=== PATIENT | male | born 1975 | race Caucasian/White ===

== ENCOUNTER 2024-04-07 21:54 | Emergency (ER) | payer SELFPAY ==
[2024-04-07 22:01] VITALS: BP 161/108; PULSE 63; RESP 14; TEMP 36.7; O2SAT 99; BMI 35.7
--- NOTE | 2024-04-07 22:02 | ED_ITS ---
HPI - Back Pain/Injury General: Chief Complaint: Back Pain/Injury Stated Complaint: Back pain Time Seen by Provider: 04/07/24 21:56 Source: patient Mode of arrival: wheelchair Limitations: no limitations History of Present Illness: Patient is a 48-year-old male presents to ED today with complaint of lower back pain over the past 2 days. No direct injury or trauma has been doing some heavy lifting around the house. He states he has a longstanding history of back pain and often times will experience flares . He states he has a history of degenerative disc disease as well as ruptured disks in his back. He states his pain today is similar to previous flares. He feels like pain radiates down into both lower extremities. He has not noticed any color or temperature changes or numbness, tingling, or loss of sensation. He is not having any saddle anesthesia or urinary retention or fecal incontinence. Patient denies fevers. No IV drug use history. MD elicited complaint: back pain Pertinent past history: prior back pain Onset (ago): day(s) Timing: constant Severity: similar to previous episodes Pain scale (0-10): 9 Similar Symptoms Previously: Yes Location: lumbar spine Radiation: buttocks, left upper leg and right upper leg Exacerbating factors: movement, walking and lifting Relieving factors: none Associated symptoms: Reports difficulty walking (secondary to low back pain); Deny abdominal pain, chills, fatigue or fever(s) Work related injury: No Review of Systems Const: Denies: fever(s), chills, body aches, fatigue or malaise Card: Denies: chest pain GI: Denies: abdominal pain : Denies: difficulty urinating, difficulty starting urination or urinary incontinence Musc: Reports: back pain; Denies: neck pain, extremity pain, extremity swelling, joint pain or joint swelling Skin/Breast: Denies: rash Neuro: Reports: difficulty walking (secondary to low back pain); Denies: numbness in extremities, weakness in extremities or sensory changes Physical Exam Const: COMMON NORMALS: no acute distress, patient oriented x3, no limitations, alert and well nourished Resp: COMMON NORMALS: normal respiratory effort and clear to auscultation bilaterally AUSCULTATION: clear to auscultation bilaterally Cardio: COMMON NORMALS: regular rate and regular rhythm RATE: regular rate RHYTHM: regular rhythm GI: COMMON NORMALS: Normal to inspection, nondistended, normoactive bowel sounds present, Soft to palpation, non-tender and no masses PALPATION: Yes Soft to palpation : COMMON NORMALS: Yes no CVA tenderness BLADDER/KIDNEY EXAM: Yes no CVA tenderness Back/Pelvis: COMMON NORMALS: no CVA tenderness THORACIC SPINE/UPPER BACK: No thoracic spinal tenderness LUMBAR SPINE/LOWER BACK: Yes ROM limited, Yes pain with ROM, Yes lumbar spinal tenderness, Yes straight leg raise positive right and Yes straight leg raise positive left PELVIS: Yes buttocks normal and No sciatic notch tenderness SACROILIAC JOINTS: Yes SI joints normal SACRUM: no tenderness COCCYX: no tenderness Extremity: COMMON NORMALS: capillary refill normal, no joint enlargement, no clubbing, cyanosis or edema, no calf tenderness and no pedal edema GENERAL: Yes normal exam except as noted Neuro: COMMON NORMALS: patient oriented x3, moves all extremities, no focal motor deficits and no sensory deficits noted SENSORIUM/ORIENTATION: Yes alert GAIT: Yes Unable to assess gait MOTOR EXAM: 5/5 motor strength present throughout Skin: COMMON NORMALS: no rashes or lesions noted GENERAL SKIN EXAM: no rashes or lesions noted Course Vital Signs: Vital signs: Vital Signs Temperature 98.0 F 04/07/24 22:01 Pulse Rate 63 04/07/24 22:01 Respiratory Rate 18 04/07/24 22:32 Blood Pressure 161/108 04/07/24 22:01 Pulse Oximetry 97 04/07/24 22:32 Oxygen Delivery Me thod Room Air 04/07/24 22:01 MDM - Back Pain/Injury Medical Decision Making No red flags on patient history and physical exam. Patient feeling better after medications given here. Will place him on steroids, anti-inflammatories, muscle relaxers. Will have case management set him up with a primary care provider for further follow-up. Return ED precautions given. Differential Diagnosis Likely lumbar radiculopathy, sciatica and strain of lumbar region Medical Records I reviewed the patient's medical records. XR interpretation done by ED provider, pending radiology final review (personal interpretation no acute process noted) Discharge Plan Discharge Patient Disposition: Home Clinical Impression: Low back pain Qualifiers: Chronicity: acute Back pain laterality: midline Sciatica presence: without sciatica Qualified Code(s): M54.50 - Low back pain, unspecified Condition: Stable Prescriptions: New methocarbamol 500 mg tablet 1,000 mg PO Q8H Qty: 30 0RF diclofenac sodium 50 mg tablet,delayed release (DR/EC) 50 mg PO Q12H PRN (Reason: pain) Qty: 20 0RF Medrol (Azael) 4 mg tablets,dose pack See Rx Instructions .ROUTE .COMPLEX Qty: 21 0RF Rx Instructions: orally per package directions Discharge Orders: Discharge ED (Routine); Ordered 04/07/24 Ordered By: Rona Pineda Coding Level of Care Code ED Journeyman Pipefitter for Gianni Nguyen
--- NOTE | 2024-04-07 22:17 | XRR_ITS ---
PROCEDURE INFORMATION: Exam: XR Lumbosacral Spine Exam date and time: 04/07/2024 10:26 PM Age: 48 years old Clinical indication: Patient HX: C/O low back pain. No injury. TECHNIQUE: Imaging protocol: Radiologic exam of the lumbosacral spine. Views: 2 or 3 views. COMPARISON: No relevant prior studies available. FINDINGS: Bones/joints: 4 lumbar vertebrae which is a normal variant. Mild to moderate multilevel spine degenerative changes including degenerative disc disease, spondylosis and facet degenerative changes. Soft tissues: Unremarkable. Organs: Surgical clips in the gallbladder fossa consistent with cholecystectomy. XR/XR lumbar spine 2-3V* [id number] IMPRESSION: 1. 4 lumbar vertebrae which is a normal variant. 2. Mild to moderate multilevel spine degenerative changes including degenerative disc disease, spondylosis and facet degenerative changes.
[2024-04-07 22:32] VITALS: RESP 18; O2SAT 97
[2024-04-07] MEDS: morphine 4 mg/mL SDV 1 mL IVP (22:32)
[2024-04-07] MEDS: dexamethasone 10 mg/mL INJ IVP (22:32)
[2024-04-07] MEDS: orphenadrine 30 mg/mL Inj 2 mL 60 MG IVP (22:32)
[2024-04-07] MEDS: ketorolac 30 mg/mL INJ IVP (22:33)
--- NOTE | 2024-04-12 07:46 | DCPLANNER ---
messaged wpfm for er f/u, and pcp est
== END 2024-04-07 23:48 | disposition home or self-care (01) ==
PROVIDERS: Emergency Provider Physician Assistant
DX: M54.50 Low back pain, unspecified (principal)
CPT/HCPCS: 72100; 96374; 96375; 99284; J1100; J1885; J2270; J2360

== ENCOUNTER 2024-06-21 22:57 | Emergency (ER) | payer OTHER, SELFPAY ==
[2024-06-21 23:04] VITALS: BP 145/84; PULSE 75; RESP 18; TEMP 36.6; O2SAT 95; BMI 33.4
[2024-06-21 23:09] VITALS: BP 145/84; PULSE 68; O2SAT 96
--- NOTE | 2024-06-21 23:16 | ED_ITS ---
HPI - Skin/Abscess/Foreign Bdy General: Chief complaint: Skin/Abscess/Foreign Body Stated complaint: Itching\Allergic Reaction Time Seen by Provider: 06/21/24 23:08 History of Present Illness: Presents to the ER with her all over his chest his back is growing in his buttocks. He says been going on for about 5 days is getting weak to the point that he cannot stand it it itches so bad and he is constantly scratching it. Patient has taken multiple doses of Benadryl and does not seem to help at all. There is nothing in the patient's life that is changed or that he can relate the rash to. Related Data Previous Rx's Medication Instructions Recorded diclofenac sodium 50 mg 50 mg PO Q12H PRN pain #20 tabs 04/07/24 tablet,delayed release methocarbamol 500 mg tablet 1,000 mg (2 x 500 mg) PO Q8H #30 04/07/24 tabs methylprednisolone 4 mg tablets in See Rx Instructions PO .COMPLEX 04/07/24 a dose pack (Medrol (Azael)) #21 ea hydroxyzine HCl 50 mg tablet 100 mg (2 x 50 mg) PO Q6H PRN 06/21/24 itching #20 tabs Allergies Allergy/AdvReac Type Severity Reaction Status Date / Time citric acid Allergy ALGY-Bliste Verified 06/21/24 23:09 r tomato Allergy ALGY-Anaphy Verified 06/21/24 23:09 laxis Review of Systems General: Reports: 10 or more systems reviewed and unremarkable except in HPI and below Physical Exam Const: COMMON NORMALS: no acute distress, average body habitus, patient oriented x3, no limitations, healthy appearing, alert and well nourished HENMT: COMMON NORMALS: normocephalic, atraumatic, hearing grossly normal bilaterally, external ears normal, Normal external nose present and moist oral mucous membranes HEAD & SCALP: normocephalic and atraumatic NOSE: Normal external nose present EXTERNAL EAR: Yes external ears normal Neck/C-Spine: COMMON NORMALS: no JVD Chest: COMMONS NORMALS: normal inspection of the chest and normal palpation of entire chest wall Resp: COMMON NORMALS: normal respiratory effort, No retractions, No use of accessory muscles and clear to auscultation bilaterally AUSCULTATION: clear to auscultation bilaterally Cardio: COMMON NORMALS: no JVD, regular rate, regular rhythm, S1 normal heart sound present, S2 normal heart sound present, No gallops present (Cardio), No clicks present (Cardio), No murmurs present (Cardio) and No rub (Cardio) RATE: regular rate RHYTHM: regular rhythm HEART SOUNDS: S1 normal heart sound present and S2 normal heart sound present GI: COMMON NORMALS: Normal to inspection, nondistended, normoactive bowel sounds present, Soft to palpation, non-tender, No hepatosplenomegaly present and no masses PALPATION: Yes Soft to palpation and Yes No hepatosplenomegaly present Neuro: COMMON NORMALS: patient oriented x3 SENSORIUM/ORIENTATION: Yes alert Skin: NARRATIVE SKIN EXAM: Rash noted on patient's right shoulder and chest. Nonspecific in nature Course Vital Signs: Vital signs: Vital Signs Temperature 97.8 F 06/21/24 23:04 Pulse Rate 68 06/21/24 23:09 Respiratory Rate 18 06/21/24 23:04 Blood Pressure 145/84 06/21/24 23:09 Pulse Oximetry 96 06/21/24 23:09 Oxygen Delivery Me thod Room Air 06/21/24 23:09 MDM - Skin/Abscess/Foreign Bdy Medicial Decision Making Patient was given hydroxyzine 100 mg, 10 mg Decadron, and 80 mg Depo-Medrol here in the ER and will be sent home with hydroxyzine. Medical Records I reviewed the patient's medical records. Lab Data I reviewed the patient's lab results. No radiology studies performed this visit Discharge Plan Discharge Patient Disposition: Home Clinical Impression: Rash Condition: Stable Prescriptions: New hydroxyzine HCl 50 mg tablet 100 mg PO Q6H PRN (Reason: itching) Qty: 20 0RF No Action methocarbamol 500 mg tablet 1,000 mg PO Q8H Qty: 30 0RF diclofenac sodium 50 mg tablet,delayed release (DR/EC) 50 mg PO Q12H PRN (Reason: pain) Qty: 20 0RF Medrol (Azael) 4 mg tablets,dose pack See Rx Instructions .ROUTE .COMPLEX Qty: 21 0RF Rx Instructions: orally per package directions Discharge Orders: Discharge ED (Routine); Ordered 06/21/24 Ordered By: Herbie Francisco Patient Instructions: Acute Rash (ED) Activity Restrictions/Additional Instructions: You have been giving a strong antihistamine as well as a short acting and long- acting steroid in the ER. You will be discharged on a strong antihistamine called hydroxyzine. Please take it as directed as needed for itching, it may cause sedation, please follow-up with your family practice physician within the next 7 days for further evaluation and treatment as needed. Coding Level of Care Code ED Sleep Lab Technician for Gianni Nguyen
[2024-06-21] MEDS: hyDROXYzine 25 mg Capsule 100 MG PO (23:22)
[2024-06-21] MEDS: methylPREDNISolone (DEPO) 80 MG/ML INJ 1 mL IM (23:23)
[2024-06-21] MEDS: dexamethasone 10 mg/mL INJ IM (23:24)
[2024-06-21 23:40] VITALS: BP 129/78; PULSE 67; O2SAT 97
== END 2024-06-21 23:42 | disposition home or self-care (01) ==
PROVIDERS: Emergency Provider Emergency Medicine
DX: R21 Rash and other nonspecific skin eruption (principal)
CPT/HCPCS: 96372; 99284; J1010; J1100

== ENCOUNTER 2024-06-26 22:04 | Emergency (ER) | payer OTHER, SELFPAY ==
[2024-06-26 22:13] VITALS: BP 150/76; PULSE 74; RESP 18; TEMP 36.6; O2SAT 96; BMI 34.7
--- NOTE | 2024-06-27 00:06 | W.ED.SKABFB ---
HPI - Skin/Abscess/Foreign Bdy General: Chief complaint: Skin/Abscess/Foreign Body Stated complaint: Rash Time Seen by Provider: 06/26/24 23:38 Source: patient Mode of arrival: ambulatory Limitations: no limitations History of Present Illness: Patient is a 49-year-old male presenting to the emergency department for the second time in 2 days for rash that has been evolving over the past week. He was seen here few days ago and the rash was reported to be to his back, however he states no other rashes in his genitalia. Denies any new sheets or other potential allergens. Denies any medications. States that last time he received steroids here in the emergency department and this improves his rash, however these were off and he started to have the rash worsened. He notes that the rash is incredibly pruritic, and he cannot quit from itching and this is caused him issues with sleeping. Denies any fever, chest pain, shortness of breath, or other symptoms. MD complaint: rash Onset (ago): week(s) Location: back and genitals Severity: moderate Quality: constant and pruritic Pain Consistency: constant Relieving factors: none Context: none Associated symptoms: Deny chills, fever(s), nausea or vomiting Related Data Previous Rx's Medication Instructions Recorded diclofenac sodium 50 mg 50 mg PO Q12H PRN pain #20 tabs 04/07/24 tablet,delayed release methocarbamol 500 mg tablet 1,000 mg (2 x 500 mg) PO Q8H #30 04/07/24 tabs methylprednisolone 4 mg tablets in See Rx Instructions PO .COMPLEX 04/07/24 a dose pack (Medrol (Azael)) #21 ea hydroxyzine HCl 50 mg tablet 100 mg (2 x 50 mg) PO Q6H PRN 06/21/24 itching #20 tabs permethrin 5 % topical cream 1 applic topical Q14D 2 doses #60 06/27/24 grams triamcinolone acetonide 0.5 % 1 applic topical BID #15 grams 06/27/24 topical ointment Allergies Allergy/AdvReac Type Severity Reaction Status Date / Time citric acid Allergy ALGY-Bliste Verified 06/21/24 23:09 r tomato Allergy ALGY-Anaphy Verified 06/21/24 23:09 laxis Review of Systems General: Reports: 10 or more systems reviewed and unremarkable except in HPI and below Const: Reports: change in sleep pattern; Denies: fever(s) or chills Card: Denies: chest pain Resp: Denies: dyspnea GI: Denies: abdominal pain, nausea, vomiting or diarrhea Musc: Denies: extremity pain or joint pain Skin/Breast: Reports: rash and pruritus; Denies: skin pain, skin tenderness or new lesions Neuro: Denies: headache(s) Physical Exam Const: COMMON NORMALS: no acute distress, average body habitus, patient oriented x3, no limitations, healthy appearing, alert and well nourished HENMT: COMMON NORMALS: normocephalic and atraumatic HEAD & SCALP: normocephalic and atraumatic Neck/C-Spine: COMMON NORMALS: full ROM, no lymphadenopathy, supple and no meningeal signs Resp: COMMON NORMALS: normal respiratory effort, No use of accessory muscles and clear to auscultation bilaterally AUSCULTATION: clear to auscultation bilaterally Cardio: COMMON NORMALS: regular rate and regular rhythm RATE: regular rate RHYTHM: regular rhythm Extremity: COMMON NORMALS: full ROM and capillary refill normal Neuro: COMMON NORMALS: patient oriented x3 SENSORIUM/ORIENTATION: Yes alert MENINGEAL SIGNS: Yes no meningeal signs Skin: COMMON NORMALS: no wounds and turgor normal NARRATIVE SKIN EXAM: Intertriginous appearing rash patient's genitalia, which extends down the inner aspect of both thighs. Not overtly erythematous, however there is evidence that this is pruritic and there is lichenification diffusely within the genitalia. There is some skin cracking noted to patient's intergluteal cleft, again with evidence of itching. No satellite lesions. No purulent drainage. No burrowing of patient's digits. GENERAL SKIN EXAM: turgor normal Course Vital Signs: Vital signs: Vital Signs Temperature 97.9 F 06/26/24 22:13 Pulse Rate 74 06/26/24 22:13 Respiratory Rate 18 06/26/24 22:13 Blood Pressure 150/76 06/26/24 22:13 Pulse Oximetry 96 06/26/24 22:13 Oxygen Delivery Me thod Room Air 06/26/24 22:13 MDM - Skin/Abscess/Foreign Bdy Medicial Decision Making Patient presented for the second time in 2 days for rash. Last time it was reported to be primarily on his back, however states now it is in his groin. He notes that he did have improvement from Decadron and Depo-Medrol last time, however once the Depo-Medrol wore off it got worse. He denied any exposure to potential allergens. On examination the rash was primarily to the genitalia, no obvious rash to his back, torso, or extremities. Differential of this rash includes but not limited to a contact dermatitis, psoriasis, or scabies. We will try permethrin for potential scabies, also will provide a topical triamcinolone. He again was giving steroid shots here in the emergency department as well as a hydroxyzine, and is encouraged to continue taking this at home. Will also refer to dermatology if he continues to have worsening of the rash. Discussed this case with Dr. Francisco who is familiar with the patient. No radiology studies performed this visit Discharge Plan Discharge Patient Disposition: Home Clinical Impression: Rash Condition: Stable Prescriptions: New permethrin 5 % cream 1 applic topical Q14D Qty: 60 0RF Rx Instructions: apply second treatment 14 days after first treatment if live lice remain triamcinolone acetonide 0.5 % ointment 1 applic topical BID Qty: 15 0RF No Action methocarbamol 500 mg tablet 1,000 mg PO Q8H Qty: 30 0RF diclofenac sodium 50 mg tablet,delayed release (DR/EC) 50 mg PO Q12H PRN (Reason: pain) Qty: 20 0RF Medrol (Azael) 4 mg tablets,dose pack See Rx Instructions .ROUTE .COMPLEX Qty: 21 0RF Rx Instructions: orally per package directions hydroxyzine HCl 50 mg tablet 100 mg PO Q6H PRN (Reason: itching) Qty: 20 0RF Discharge Orders: Discharge ED (Routine); Ordered 06/27/24 Ordered By: Nick Kennedy Discharge Diet: Usual diet Discharge Activity: Increase activity as tolerated Patient Instructions: Rash - Nonspecific Activity Restrictions/Additional Instructions: Permethrin as prescribed. Topical triamcinolone. Follow-up with dermatology as discussed. Continue taking hydroxyzine for itching. May also take Benadryl. Follow-up with your primary care provider with any further issues. Coding Level of Care Code ED Account Services Specialist for Gianni Nguyen
[2024-06-27] MEDS: hyDROXYzine 25 mg Capsule 50 MG PO (00:42)
[2024-06-27] MEDS: methylPREDNISolone (DEPO) 80 MG/ML INJ 1 mL IM (00:48)
[2024-06-27] MEDS: dexamethasone 10 mg/mL INJ IM (00:48)
[2024-06-27 00:51] VITALS: BP 133/86; PULSE 63; O2SAT 92
[2024-06-27 01:10] VITALS: BP 122/81; PULSE 66; O2SAT 94
--- NOTE | 2024-06-27 09:07 | DCPLANNER ---
Message sent to Dermatology for follow up on Rash
== END 2024-06-27 01:12 | disposition home or self-care (01) ==
PROVIDERS: Emergency Provider Physician Assistant
DX: R21 Rash and other nonspecific skin eruption (principal)
CPT/HCPCS: 96372; 99284; J1010; J1100

== ENCOUNTER 2024-08-12 21:01 | Emergency (ER) | payer OTHER, SELFPAY ==
[2024-08-12 21:06] VITALS: BP 143/94; PULSE 75; RESP 22; TEMP 36.6; O2SAT 97; BMI 35.7
--- NOTE | 2024-08-12 21:27 | ED_ITS ---
HPI - Back Pain/Injury General: Chief Complaint: Back Pain/Injury Stated Complaint: right side back pain Time Seen by Provider: 08/12/24 21:02 History of Present Illness: Patient is a 49-year-old male that presents to the emergency department with acute on chronic back pain. Patient denies any falls or trauma. Denies any new injury. Patient states this is his baseline chronic back pain but it is flared up. Patient denies radiculopathy Denies numbness tingling Denies weakness. Lifting his leg causes increased back pain. He denies sacral paresthesias Denies urinary retention or incontinence Denies bowel retention or incontinence. Associated symptoms: Reports difficulty walking (secondary to low back pain); Deny abdominal pain, chills, fatigue or fever(s) Related Data Previous Rx's Medication Instructions Recorded diclofenac sodium 50 mg 50 mg PO Q12H PRN pain #20 tabs 04/07/24 tablet,delayed release methocarbamol 500 mg tablet 1,000 mg (2 x 500 mg) PO Q8H #30 04/07/24 tabs methylprednisolone 4 mg tablets in See Rx Instructions PO .COMPLEX 04/07/24 a dose pack (Medrol (Azael)) #21 ea hydroxyzine HCl 50 mg tablet 100 mg (2 x 50 mg) PO Q6H PRN 06/21/24 itching #20 tabs permethrin 5 % topical cream 1 applic topical Q14D 2 doses #60 06/27/24 grams triamcinolone acetonide 0.5 % 1 applic topical BID #15 grams 06/27/24 topical ointment methocarbamol 500 mg tablet 500 mg PO Q6H #30 tabs 08/12/24 methylprednisolone 4 mg tablets in See Rx Instructions PO .COMPLEX 08/12/24 a dose pack (Medrol (Azael)) #21 ea Allergies Allergy/AdvReac Type Severity Reaction Status Date / Time citric acid Allergy ALGY-Bliste Verified 06/21/24 23:09 r tomato Allergy ALGY-Anaphy Verified 06/21/24 23:09 laxis Review of Systems Const: Denies: fever(s), chills, body aches, fatigue or malaise Card: Denies: chest pain GI: Denies: abdominal pain : Denies: difficulty urinating, difficulty starting urination or urinary incontinence Musc: Reports: back pain; Denies: neck pain, extremity pain, extremity swelling, joint pain or joint swelling Skin/Breast: Denies: rash Neuro: Reports: difficulty walking (secondary to low back pain); Denies: numbness in extremities, weakness in extremities or sensory changes Physical Exam Const: COMMON NORMALS: no acute distress, patient oriented x3, no limitations, alert and well nourished Resp: COMMON NORMALS: normal respiratory effort and clear to auscultation bilaterally AUSCULTATION: clear to auscultation bilaterally Cardio: COMMON NORMALS: regular rate and regular rhythm RATE: regular rate RHYTHM: regular rhythm GI: COMMON NORMALS: Normal to inspection, nondistended, normoactive bowel sounds present, Soft to palpation, non-tender and no masses PALPATION: Yes Soft to palpation : COMMON NORMALS: Yes no CVA tenderness BLADDER/KIDNEY EXAM: Yes no CVA tenderness Back/Pelvis: COMMON NORMALS: no CVA tenderness THORACIC SPINE/UPPER BACK: No thoracic spinal tenderness LUMBAR SPINE/LOWER BACK: Yes ROM limited, Yes pain with ROM, Yes lumbar spinal tenderness, Yes straight leg raise positive right and Yes straight leg raise positive left PELVIS: Yes buttocks normal and No sciatic notch tenderness SACROILIAC JOINTS: Yes SI joints normal SACRUM: no tenderness COCCYX: no tenderness Extremity: COMMON NORMALS: capillary refill normal, no joint enlargement, no clubbing, cyanosis or edema, no calf tenderness and no pedal edema GENERAL: Yes normal exam except as noted Neuro: COMMON NORMALS: patient oriented x3, moves all extremities, no focal motor deficits and no sensory deficits noted SENSORIUM/ORIENTATION: Yes alert GAIT: Yes Unable to assess gait MOTOR EXAM: 5/5 motor strength present throughout Skin: COMMON NORMALS: no rashes or lesions noted GENERAL SKIN EXAM: no rashes or lesions noted Course Vital Signs: Vital signs: Vital Signs Temperature 97.8 F 08/12/24 21:06 Pulse Rate 75 08/12/24 21:06 Respiratory Rate 22 H 08/12/24 21:06 Blood Pressure 143/94 08/12/24 21:06 Pulse Oximetry 97 08/12/24 21:06 Oxygen Delivery Me thod Room Air 08/12/24 21:06 MDM - Back Pain/Injury Medical Decision Making Patient was evaluated today for complaints of lumbar back pain that is chronic in nature. Patient states this is baseline back pain but it is flared today. Describing more muscle spasm on the right side of the back, off midline. Patient was treated here in the emergency department with diazepam, ketorolac, Decadron. Have casework manager assist him in establishing primary care Patient needs to follow-up with primary care. He will be sent home with a prescription for Medrol Dosepak and muscle relaxer No radiology studies performed this visit Discharge Plan Discharge Patient Disposition: Home Clinical Impression: Strain of lumbar region Condition: Stable Prescriptions: New methocarbamol 500 mg tablet 500 mg PO Q6H Qty: 30 0RF methylprednisolone [Medrol (Azael)] 4 mg tablets,dose pack See Rx Instructions .ROUTE .COMPLEX Qty: 21 0RF Rx Instructions: for 6 days No Action permethrin 5 % cream 1 applic topical Q14D Qty: 60 0RF Rx Instructions: apply second treatment 14 days after first treatment if live lice remain triamcinolone acetonide 0.5 % ointment 1 applic topical BID Qty: 15 0RF methocarbamol 500 mg tablet 1,000 mg PO Q8H Qty: 30 0RF diclofenac sodium 50 mg tablet,delayed release (DR/EC) 50 mg PO Q12H PRN (Reason: pain) Qty: 20 0RF Medrol (Azael) 4 mg tablets,dose pack See Rx Instructions .ROUTE .COMPLEX Qty: 21 0RF Rx Instructions: orally per package directions hydroxyzine HCl 50 mg tablet 100 mg PO Q6H PRN (Reason: itching) Qty: 20 0RF Discharge Orders: Discharge ED (Routine); Ordered 08/12/24 Ordered By: Fransisco Louis Discharge Diet: Advance as tolerated Discharge Activity: Resume usual activity Patient Instructions: Opioid Safety, Pain Management, Core Strengthening Exercises (ED), Low Back Strain (ED), Lower Back Exercises (ED) Activity Restrictions/Additional Instructions: Please establish primary care and return to the emergency department for new concerning or worsening symptoms Coding Level of Care Code ED Dog And Cat Food Cook for [facility] Nguyen
[2024-08-12] MEDS: ketorolac 60 mg/2 mL INJ IM (21:38)
[2024-08-12] MEDS: diazePAM 5 mg Tablet PO (21:38)
[2024-08-12] MEDS: dexamethasone 10 mg/mL INJ IM (21:38)
--- NOTE | 2024-08-15 08:24 | DCPLANNER ---
Message sent to Clinics to get a PCP established.
== END 2024-08-12 22:18 | disposition home or self-care (01) ==
PROVIDERS: Emergency Provider Nurse Practitioner
DX: S39.012A Strain of muscle, fascia and tendon of lower back, initial encounter (principal); X58.XXXA Exposure to other specified factors, initial encounter
CPT/HCPCS: 96372; 99284; J1100; J1885

== ENCOUNTER → 2024-10-19 08:42 | Outpatient (BNVA) | payer OTHER, SELFPAY | PROVIDERS: Visit Provider Family Medicine | DX: Z13.6 Encounter for screening for cardiovascular disorders (principal) | CPT/HCPCS: 80053; 80061; 85025 ==

== ENCOUNTER 2024-11-15 11:26 | Emergency (ER) | payer OTHER, SELFPAY ==
[2024-11-15 11:34] VITALS: BP 147/92; PULSE 73; RESP 17; TEMP 36.6; O2SAT 96; BMI 35.7
--- NOTE | 2024-11-15 12:40 | XR_ITS ---
WS: [id number] Left elbow, 3 views, 11/15/2024 Clinical Data: left elbow pain Comparison: None. Findings: No fractures or dislocations are seen. The radial head is normal. The soft tissues are unremarkable. XR/XR elbow LT min 3V* [id number] Impression: Negative left elbow.
--- NOTE | 2024-11-15 12:41 | ED_ITS ---
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 Rates the pain a 3 out of 10 currently is improved with rest Associated symptoms: Deny chest pain, fever(s) or rash Related Data Previous Rx's ?Medication ?Instructions ?Recorded celecoxib 200 mg capsule (Celebrex) 200 mg PO BID #120 caps 10/19/24 gabapentin 300 mg capsule 300 mg PO .qhs #60 caps 09/22 tizanidine 4 mg tablet 4 mg PO BID PRN muscle spast icity 10/19/24 #60 tabs Allergies Allergy/AdvReac Type Severity Reaction Status Date / Time citric acid Allergy ALGY-Bliste Verified 11/15/24 11:38 r tomato Allergy ALGY-Anaphy Verified 11/15/24 11:38 laxis Review of Systems Const: Denies: fever(s), chills, body aches or change in appetite ENMT: Denies: throat pain or dental pain Card: Denies: chest pain Resp: Denies: dyspnea GI: Denies: abdominal pain, nausea, vomiting or diarrhea Musc: Reports: extremity pain; Denies: neck pain or back pain Skin/Breast: Denies: rash Neuro: Denies: headache(s) PFSH ED PFSH: Medical History Moderate tobacco use disorder Degenerative disk disease Xerosis of skin Social anxiety disorder Adult BMI 35.0-35.9 kg/sq m Surgical History History of cholecystectomy Family History Grandfather Cancer Heart disease Grandmother Heart disease Mother Breast cancer Lung cancer Heart disease Father Alzheimer's dementia Hypertension Social History (Updated 10/19/24 @ 08:29 by Jamir Perdomo MD) Smoking and tobacco/nicotine status: current every day tobacco/nicotine user cigarettes [ Other cigarette details: 1PPD, 15PY] Alcohol intake: never Substance/Drug Use: current Substance/Drug use frequency: daily Physical Exam Const: COMMON NORMALS: no acute distress, patient oriented x3 and healthy appearing HENMT: COMMON NORMALS: normocephalic and atraumatic HEAD & SCALP: normocephalic and atraumatic Eye: COMMON NORMALS: conjunctivae normal CONJUNCTIVA: Yes conjunctivae normal Neck/C-Spine: COMMON NORMALS: full ROM and supple Chest: COMMONS NORMALS: normal inspection of the chest Resp: COMMON NORMALS: normal respiratory effort Cardio: COMMON NORMALS: regular rate RATE: regular rate Extremity: NARRATIVE EXTREMITY EXAM: Tenderness to ulnar aspect of left elbow has some pain with range of motion pain when he tries to financial operations clerk distal pulses sensation intact no redness warmth to touch to the elbow Neuro: COMMON NORMALS: patient oriented x3, moves all extremities and no focal motor deficits Psych: COMMON NORMALS: mental status grossly normal, Normal thought process present and cooperative THOUGHT PROCESS: Normal thought process present Skin: COMMON NORMALS: no rashes or lesions noted and no wounds GENERAL SKIN EXAM: no rashes or lesions noted Course Vital Signs: Vital signs: Vital Signs Temperature 98 F 11/15/24 11:34 Pulse Rate 73 11/15/24 11:34 Respiratory Rate 17 11/15/24 11:34 Blood Pressure 147/92 11/15/24 11:34 Pulse Oximetry 96 11/15/24 11:34 Oxygen Delivery Me thod Room Air 11/15/24 11:34 MDM - Extremity (Nontraumatic) Medical Decision Making Patient presents here with left elbow pain is likely a tendinitis will Jr wrap he is to ice take anti-inflammatories we will get him follow-up with orthopedics he is no signs of cellulitis or septic joint x-ray is negative Medical Records I reviewed the patient's medical records. XR interpretation done by ED provider, pending radiology final review ED provider radiology interpretation(s): X-ray left elbow no acute abnormality Discharge Plan Discharge Patient Disposition: Home Clinical Impression: Elbow pain, left Condition: Stable Prescriptions: No Action celecoxib [Celebrex] 200 mg capsule 200 mg PO BID Qty: 120 1RF tizanidine 4 mg tablet 4 mg PO BID PRN (Reason: muscle spasticity) Qty: 60 1RF gabapentin 300 mg capsule 300 mg PO .qhs Qty: 60 0RF Discharge Orders: Discharge ED (Routine); Ordered 11/15/24 Ordered By: Tarsha Chow Referrals: Eduardo Kruse DO [Physician] - 4-7 days Discharge Diet: Advance as tolerated Discharge Activity: Resume usual activity Patient Instructions: Tendinitis (ED) Print Language: Norwegian Coding Level of Care Code ED Recreational Aide for [facility] Nguyen
[2024-11-15] MEDS: HYDROcodone-acetaminophen 5-325 mg Tablet 1 TAB PO (12:55)
[2024-11-15] MEDS: ketorolac 30 mg/mL INJ IM (12:57)
[2024-11-15] MEDS: dexamethasone 10 mg/mL INJ IM (12:57)
[2024-11-15 13:07] VITALS: BP 138/73; PULSE 78; O2SAT 98
--- NOTE | 2024-11-16 07:38 | DCPLANNER ---
messaged ortho for er f/u
== END 2024-11-15 13:07 | disposition home or self-care (01) ==
PROVIDERS: Emergency Provider Emergency Medicine
DX: M25.522 Pain in left elbow (principal); F17.210 Nicotine dependence, cigarettes, uncomplicated
CPT/HCPCS: 73080; 96372; 99284; J1100; J1885

== ENCOUNTER 2025-03-05 10:04 | Emergency (ER) | payer OTHER, SELFPAY ==
[2025-03-05 10:10] VITALS: BP 168/74; PULSE 71; RESP 17; TEMP 36.5; O2SAT 94; BMI 35.7
[2025-03-05 11:29] LABS: Basophils # 0.1 10^3/uL (0.0-0.1); Basophils % 1.1 %; Eosinophils # 0.1 10^3/uL (0.0-0.8); Eosinophils % 1.6 %; Hematocrit 47.3 % (37-53); Lymphocytes # 1.4 10^3/uL (0.8-4.8); Lymphocytes % 18.3 %; Mean Corpuscular HGB Conc 32.3 g/dL (30-55); Mean Corpuscular Hemoglobin 29.9 pg (27-33); Mean Corpuscular Volume 92.6 fl (82-101); Mean Platelet Volume 10.6 fL (7.4-10.4); Monocytes # 0.3 10^3/uL (0.2-0.9); Monocytes % 3.5 %; Neutrophils # 5.92 10^3/uL (1.8-7.7); Neutrophils % 75.1 %; Nucleated Red Blood Cells % 0 %; Platelet Count 322 10^3/cmm (157-399); Red Blood Count 5.11 10^6/uL (3.85-5.65); Red Cell Distribution Width 13.8 % (12.1-15.1); White Blood Count 7.89 10^3/uL (3.29-11.43)
[2025-03-05 11:52] LABS: Alanine Aminotransferase 20 U/L (0-41); Albumin Level 4.2 g/dL (3.5-5.2); Alkaline Phosphatase 57 U/L (40-130); Anion Gap 13.6 (5-19); Aspartate Amino Transferase 19 U/L (0-40); Blood Urea Nitrogen 8 mg/dL (6-20); Calcium 9.2 mg/dL (8.5-10.5); Carbon Dioxide 23 mmol/L (22-29); Chloride 106 mmol/L (98-107); Creatinine Clr Calc Pharmacy 151.0846; Globulin 3.1 g/dL (1.3-4.6); Glomerular Filtration Rate 119.9 mL/min (90-130); Glucose 123 mg/dL (65-115); Lipase 107 U/L (13-60); Osmolality Calculated 286 mOsm/kg (285-295); Potassium 4.6 mmol/L (3.5-5.1); Sodium 138 mmol/L (136-145); Total Bilirubin 0.2 mg/dL (0.15-1.2); Total Protein 7.3 g/dL (6.6-8.7)
--- NOTE | 2025-03-05 13:40 | W.ED.NAVMDI ---
HPI - Nausea/Vomiting/Diarrhea General: Chief complaint: Nausea/Vomiting/Diarrhea Stated complaint: n,dizzy,sore throat,fever Time Seen by Provider: 03/05/25 13:26 Source: patient Mode of arrival: ambulatory Limitations: no limitations History of Present Illness: 49-year-old male states that since last night has been having nausea vomiting along with some diarrhea. States had multiple episodes of vomiting been able to tolerate any p.o. and is only getting dehydrated. He denies any abdominal pain denies any fever he states he has lost his sense of taste and smell and is concerned he could have COVID he had the symptoms previously with COVID. Associated nausea: Yes Associated symtoms: Reports nausea; Denies chest pain, dysuria or headache(s) Related Data Previous Rx's ?Medication ?Instructions ?Recorded celecoxib 200 mg capsule (Celebrex) 200 mg PO BID #120 caps 10/19/24 baclofen 10 mg tablet 10 mg PO TID #90 tabs 11/30/24 nystatin 100,000 unit/gram topical 1 applic topical BID 14 days #30 11/30/24 cream grams diclofenac sodium 1 % topical gel 4 g topical QID #100 grams 12/06/24 (Voltaren Arthritis Pain) ondansetron 4 mg disintegrating 4 mg PO Q6H PRN nausea and 03/05/25 tablet vomiting #14 tabs Allergies Allergy/AdvReac Type Severity Reaction Status Date / Time citric acid Allergy ALGY-Bliste Verified 01/08/25 09:45 r tomato Allergy ALGY-Anaphy Verified 01/08/25 09:45 laxis Review of Systems Const: Denies: fever(s), chills, body aches or change in appetite Eyes: Denies: blurry vision or eye discomfort ENMT: Denies: throat pain or dental pain Card: Denies: chest pain Resp: Denies: dyspnea GI: Reports: nausea, vomiting and diarrhea; Denies: abdominal pain : Denies: dysuria Musc: Denies: neck pain or back pain Skin/Breast: Denies: rash Neuro: Denies: headache(s) PFS ED PFSH: Medical History Moderate tobacco use disorder Degenerative disk disease Xerosis of skin Social anxiety disorder Adult BMI 35.0-35.9 kg/sq m Surgical History History of cholecystectomy Family History Grandfather Cancer Heart disease Grandmother Heart disease Mother Breast cancer Lung cancer Heart disease Father Alzheimer's dementia Hypertension Social History Smoking and tobacco/nicotine status: current every day tobacco/nicotine user cigarettes [ Other cigarette details: 1PPD, 15PY] Alcohol intake: never Substance/Drug Use: current Substance/Drug use frequency: daily Physical Exam Const: COMMON NORMALS: no acute distress, patient oriented x3 and healthy appearing HENMT: COMMON NORMALS: normocephalic and atraumatic HEAD & SCALP: normocephalic and atraumatic Neck/C-Spine: COMMON NORMALS: full ROM and supple Chest: COMMONS NORMALS: normal inspection of the chest Resp: COMMON NORMALS: normal respiratory effort, No retractions, No use of accessory muscles and clear to auscultation bilaterally AUSCULTATION: clear to auscultation bilaterally Cardio: COMMON NORMALS: regular rate, regular rhythm and No murmurs present (Cardio) RATE: regular rate RHYTHM: regular rhythm GI: COMMON NORMALS: Normal to inspection, nondistended, normoactive bowel sounds present, Soft to palpation, non-tender and no masses PALPATION: Yes Soft to palpation Extremity: COMMON NORMALS: normal to inspection and full ROM Neuro: COMMON NORMALS: patient oriented x3, moves all extremities and no focal motor deficits Psych: COMMON NORMALS: mental status grossly normal, Normal thought process present and cooperative THOUGHT PROCESS: Normal thought process present Skin: COMMON NORMALS: no rashes or lesions noted and no wounds GENERAL SKIN EXAM: no rashes or lesions noted Course Vital Signs: Vital signs: Vital Signs Temperature 97.7 F 03/05/25 10:10 Pulse Rate 69 03/05/25 14:52 Respiratory Rate 16 03/05/25 14:52 Blood Pressure 148/100 03/05/25 14:52 Pulse Oximetry 94 03/05/25 14:52 Oxygen Delivery Me thod Room Air 03/05/25 14:52 MDM - Nausea/Vomiting/Diarrhea Medical Decision Making Patient presents here with vomiting likely gastroenteritis he does feel improved after Zofran blood works normal abdominal exam is benign he stable for discharge we will prescribe him Zofran he is return if worsening he understands reasons plan. Medical Records I reviewed the patient's medical records. Lab Data I reviewed the patient's lab results. 03/05/25 11:09 03/05/25 11:09 Laboratory Results WBC 7.89 10^3/uL (3.29-11.43) 03/05/25 11:09 RBC 5.11 10^6/uL (3.85-5.65) 03/05/25 11:09 Hgb 15.30 g/dL (11.27-16.99) 03/05/25 11:09 Hct 47.3 % (37-53) 03/05/25 11:09 MCV 92.6 fl (82-101) 03/05/25 11:09 MCH 29.9 pg (27-33) 03/05/25 11:09 MCHC 32.3 g/dL (30-55) 03/05/25 11:09 RDW 13.8 % (12.1-15.1) 03/05/25 11:09 Plt Count 322 10^3/cmm (157-399) 03/05/25 11:09 MPV 10.6 fL (7.4-10.4) H 03/05/25 11:09 Neut % (Auto) 75.1 % 03/05/25 11:09 Lymph % (Auto) 18.3 % 03/05/25 11:09 [place] % (Auto) 3.5 % 03/05/25 11:09 Eos % (Auto) 1.6 % 03/05/25 11:09 Baso % (Auto) 1.1 % 03/05/25 11:09 Neut # (Auto) 5.92 10^3/uL (1.8-7.7) 03/05/25 11:09 Lymph # (Auto) 1.4 10^3/uL (0.8-4.8) 03/05/25 11:09 [place] # (Auto) 0.3 10^3/uL (0.2-0.9) 03/05/25 11:09 Eos # (Auto) 0.1 10^3/uL (0.0-0.8) 03/05/25 11:09 Baso # (Auto) 0.1 10^3/uL (0.0-0.1) 03/05/25 11:09 Nucleated RBC % (auto) 0 % 03/05/25 11:09 Nucleated RBCs # 0.0 /100WBC 03/05/25 11:09 Sodium 138 mmol/L (136-145) 03/05/25 11:09 Potassium 4.6 mmol/L (3.5-5.1) 03/05/25 11:09 Chloride 106 mmol/L (98-107) 03/05/25 11:09 Carbon Dioxide 23 mmol/L (22-29) 03/05/25 11:09 Anion Gap 13.6 (5-19) 03/05/25 11:09 BUN 8 mg/dL (6-20) 03/05/25 11:09 Creatinine 0.7 mg/dL (0.7-1.2) 03/05/25 11:09 GFR Calculation 119.9 mL/min (90-130) 03/05/25 11:09 Glucose 123 mg/dL (65-115) H 03/05/25 11:09 Calculated Osmolality 286 mOsm/kg (285-295) 03/05/25 11:09 Calcium 9.2 mg/dL (8.5-10.5) 03/05/25 11:09 Total Bilirubin 0.2 mg/dL (0.15-1.2) 03/05/25 11:09 AST 19 U/L (0-40) 03/05/25 11:09 ALT 20 U/L (0-41) 03/05/25 11:09 Alkaline Phosphatase 57 U/L (40-130) 03/05/25 11:09 Total Protein 7.3 g/dL (6.6-8.7) 03/05/25 11:09 Albumin 4.2 g/dL (3.5-5.2) 03/05/25 11:09 Globulin 3.1 g/dL (1.3-4.6) 03/05/25 11:09 Lipase 107 U/L (13-60) H 03/05/25 11:09 Influenza A (PCR) Negative (Negative) 03/05/25 14:14 Influenza Type B (PCR) Negative (Negative) 03/05/25 14:14 RSV (PCR) Negative (Negative) 03/05/25 14:14 SARS-CoV-2 (PCR) Negative (Negative) 03/05/25 14:14 No radiology studies performed this visit Discharge Plan Discharge Patient Disposition: Home Clinical Impression: Vomiting Condition: Stable Prescriptions: New ondansetron 4 mg tablet,disintegrating 4 mg PO Q6H PRN (Reason: nausea and vomiting) Qty: 14 0RF No Action baclofen 10 mg tablet 10 mg PO TID Qty: 90 2RF nystatin 100,000 unit/gram cream 1 applic topical BID 14 Days Qty: 30 0RF celecoxib [Celebrex] 200 mg capsule 200 mg PO BID Qty: 120 1RF diclofenac sodium [Voltaren Arthritis Pain] 1 % gel 4 g topical QID Qty: 100 3RF Rx Instructions: apply to single knee, ankle, foot; for foot includes sole/toes/top of foot and elbow Discharge Orders: Discharge ED (Routine); Ordered 03/05/25 Ordered By: Tarsha Chow Referrals: Jamir Perdomo MD [Primary Care Provider, [facility]] - 4-7 days Discharge Diet: Advance as tolerated Discharge Activity: Resume usual activity Patient Instructions: Acute Nausea and Vomiting (ED) Print Language: Korean Coding Level of Care Code ED Denial Resolution Specialist for Gianni Nguyen
[2025-03-05] MEDS: sodium chloride 0.9% 1,000 ML 999 ML IV (13:48)
[2025-03-05] MEDS: ondansetron 2 mg/ML SDV 2 mL 4 MG IVP (13:48)
[2025-03-05 14:52] VITALS: BP 148/100; PULSE 69; RESP 16; O2SAT 94
[2025-03-05 15:02] LABS: Influenza A NEGATIVE (Negative); Influenza B NEGATIVE (Negative); Respiratory Syncytial Virus Ce NEGATIVE (Negative); SARS-CoV-2 PCR NEGATIVE (Negative)
[2025-03-05 15:19] LABS: Bilirubin Urine Negative (Negative); Blood Urine Negative (Negative); Glucose Urine UA Negative (Normal); Ketones Urine Negative (Negative); Leukocyte Esterase Urine Negative (Negative); Nitrate Urine Negative (Negative); Protein Urine Negative (Negative); Specific Gravity, Urine 1.021 (1.005-1.030); Urine Appearance Clear (CLEAR); Urine Color Yellow (Yellow)
[2025-03-05] MEDS: ketorolac 30 mg/mL INJ 15 MG IVP (15:19)
[2025-03-05 15:24] LABS: Add Urine Microscopic? YES; Bacteria Urine None Seen /hpf; Hyaline Casts Urine 0-4 /lpf; RBC Urine 0-2 /hpf (0-2); Squamous Epithelial Cell Urine 0-5 /hpf (0-5); WBC Urine 0-5 /hpf (0-5)
[2025-03-05 15:44] VITALS: BP 144/86; PULSE 67; RESP 16; O2SAT 96
== END 2025-03-05 15:21 | disposition home or self-care (01) ==
PROVIDERS: Physician Assistant; Emergency Provider Emergency Medicine; PCP Family Medicine
DX: R11.2 Nausea with vomiting, unspecified (principal); Z11.52 Encounter for screening for COVID-19; F17.210 Nicotine dependence, cigarettes, uncomplicated
CPT/HCPCS: 36415; 80053; 81001; 83690; 85025; 87637; 96374; 96375; 99284; J1885; J2405; J7030

== ENCOUNTER 2025-03-06 22:10 | Emergency (ER) | payer OTHER, SELFPAY ==
[2025-03-06 22:13] VITALS: BP 154/85; PULSE 68; RESP 16; TEMP 36.9; O2SAT 98; BMI 34.9
--- NOTE | 2025-03-06 22:33 | W.ED.SYNCOPE ---
HPI - Syncope General: Chief Complaint: Syncope Stated Complaint: n/v, syncope Time Seen by Provider: 03/06/25 22:12 Source: patient Mode of arrival: EMS Limitations: no limitations History of Present Illness: 49yo male presents via EMS for evaluation of syncopal episode with persistent vomiting. Patient reports he was seen in this ER last night for vomiting. States that has continued today. Reports he did have a syncopal episode at 0500 this morning and has felt like he would have repeated throughout the day. States that his blood pressure has also been elevated. Patient reports that he does not take any prescription medications and does not have any chronic medical conditions. He denies fever, chills, body aches, diarrhea, any other concerns at this time. Associated symptoms: Reports headache(s) and nausea; Deny abdominal pain, chest pain or fever(s) Related Data Previous Rx's ?Medication ?Instructions ?Recorded celecoxib 200 mg capsule (Celebrex) 200 mg PO BID #120 caps 10/19/24 baclofen 10 mg tablet 10 mg PO TID #90 tabs 11/30/24 nystatin 100,000 unit/gram topical 1 applic topical BID 14 days #30 11/30/24 cream grams diclofenac sodium 1 % topical gel 4 g topical QID #100 grams 12/06/24 (Voltaren Arthritis Pain) ondansetron 4 mg disintegrating 4 mg PO Q6H PRN nausea and 03/05/25 tablet vomiting #14 tabs metoclopramide HCl 10 mg tablet 10 mg PO Q6H PRN nausea and 03/07/25 (Reglan) vomiting #30 tabs Allergies Allergy/AdvReac Type Severity Reaction Status Date / Time citric acid Allergy ALGY-Bliste Verified 03/06/25 22:13 r tomato Allergy ALGY-Anaphy Verified 03/06/25 22:13 laxis Review of Systems Const: Denies: fever(s), chills or body aches Card: Denies: chest pain Resp: Denies: dyspnea GI: Reports: nausea and vomiting; Denies: abdominal pain : Denies: difficulty urinating or dysuria Neuro: Reports: headache(s) PFSH ED PFSH: Medical History Moderate tobacco use disorder Degenerative disk disease Xerosis of skin Social anxiety disorder Adult BMI 35.0-35.9 kg/sq m Surgical History History of cholecystectomy Family History Grandfather Cancer Heart disease Grandmother Heart disease Mother Breast cancer Lung cancer Heart disease Father Alzheimer's dementia Hypertension Social History Smoking and tobacco/nicotine status: current every day tobacco/nicotine user cigarettes [ Other cigarette details: 1PPD, 15PY] Alcohol intake: never Substance/Drug Use: current Substance/Drug use frequency: daily Physical Exam Const: COMMON NORMALS: no acute distress, patient oriented x3 and alert GENERAL APPEARANCE: cooperative ORIENTATION/CONSCIOUSNESS: Yes awake OTHER: Patient is sitting upright on the stretcher in no acute distress. He is able to give history with no difficulty. He is interactive with exam appropriately. No family is at bedside at time of exam HENMT: COMMON NORMALS: normocephalic, atraumatic, external ears normal, TM's normal bilaterally and Normal external nose present HEAD & SCALP: normocephalic and atraumatic NOSE: Normal external nose present EXTERNAL EAR: Yes external ears normal TYMPANIC MEMBRANE: TM's normal bilaterally MOUTH: Normal oral and palatal mucosa present Neck/C-Spine: COMMON NORMALS: full ROM Chest: CHEST: Yes Symmetrical chest wall rise Resp: COMMON NORMALS: normal respiratory effort and clear to auscultation bilaterally EFFORT & INSPECTION: Yes able to speak in complete sentences AUSCULTATION: clear to auscultation bilaterally Cardio: COMMON NORMALS: regular rate and regular rhythm RATE: regular rate RHYTHM: regular rhythm GI: COMMON NORMALS: Soft to palpation and non-tender PALPATION: Yes Soft to palpation : COMMON NORMALS: Yes no CVA tenderness BLADDER/KIDNEY EXAM: Yes no CVA tenderness Back/Pelvis: COMMON NORMALS: no CVA tenderness Extremity: COMMON NORMALS: full ROM Neuro: COMMON NORMALS: patient oriented x3 SENSORIUM/ORIENTATION: Yes alert Psych: COMMON NORMALS: cooperative Course Vital Signs: Vital signs: Vital Signs Temperature 98.5 F 03/06/25 22:13 Pulse Rate 67 03/07/25 01:54 Respiratory Rate 16 03/07/25 01:54 Blood Pressure 125/57 03/07/25 01:54 Pulse Oximetry 95 03/07/25 01:54 Oxygen Delivery Me thod Room Air 03/07/25 00:30 MDM - Syncope Medical Decision Making 49yo male presents via EMS for evaluation of syncopal episode with persistent vomiting. Patient reports he was seen in this ER last night for vomiting. States that has continued today. Reports he did have a syncopal episode at 0500 this morning and has felt like he would have repeated throughout the day. States that his blood pressure has also been elevated. Patient is nontoxic in appearance. Vital signs are stable. Chart review from yesterday's visit does reveal an elevated lipase at 107. With patient's persistent vomiting, will repeat labs as well as proceed with 1 L normal saline, metoclopramide, and diphenhydramine for the vomiting. No leukocytosis, white blood cell count is 11.36. No electrolyte, renal, or hepatic abnormalities noted. Lipase is elevated at 197 compared to yesterday's 160. Alcohol level is unremarkable. UA with a pH of 8.0 and 0-4 hyaline casts, otherwise unremarkable. Discussed these findings with patient and family. Plan to proceed with CT of the abdomen/pelvis as well as adding amylase for further evaluation of the elevated lipase. Amylase level not available. CTAP reveals prominent fluid in the stomach and small bowel concerning for gastroenteritis as well as diverticulosis with no evidence of diverticulitis. Discussed these findings with patient and family. Patient had no further vomiting after administration of metoclopramide. Will proceed with prescription of metoclopramide and slowly increase oral intake as tolerated. Patient's blood pressure, although never significantly elevated, was noted to decrease to 125/57 at time of discharge. Encourage patient to follow-up with primary care, call in the next 1 to 2 days with an update of symptoms and to discuss a recheck. Return precautions provided. Patient states understanding and has no further questions or concerns at this time. Medical Records I reviewed the patient's medical records. Lab Data I reviewed the patient's lab results. 03/06/25 21:54 03/06/25 21:54 Radiology Impressions Abdomen/Pelvis CT 03/06/25 23:58 IMPRESSION: 1. Prominent fluid in the stomach and small bowel, please correlate for a gastroenteritis. 2. Diverticulosis without diverticulitis. 3. Emphysematous changes. 4. Hepatic steatosis. 5. Cholecystectomy. Laboratory Results WBC 11.36 10^3/uL (3.29-11.43) 03/06/25 21:54 RBC 4.83 10^6/uL (3.85-5.65) 03/06/25 21:54 Hgb 14.70 g/dL (11.27-16.99) 03/06/25 21:54 Hct 44.0 % (37-53) 03/06/25 21:54 MCV 91.1 fl (82-101) 03/06/25 21:54 MCH 30.4 pg (27-33) 03/06/25 21:54 MCHC 33.4 g/dL (30-55) 03/06/25 21:54 RDW 13.6 % (12.1-15.1) 03/06/25 21:54 Plt Count 418 10^3/cmm (157-399) H 03/06/25 21:54 MPV 10.6 fL (7.4-10.4) H 03/06/25 21:54 Neut % (Auto) 68.8 % 03/06/25 21:54 Lymph % (Auto) 21.8 % 03/06/25 21:54 [place] % (Auto) 7.0 % 03/06/25 21:54 Eos % (Auto) 1.2 % 03/06/25 21:54 Baso % (Auto) 0.8 % 03/06/25 21:54 Neut # (Auto) 7.81 10^3/uL (1.8-7.7) H 03/06/25 21:54 Lymph # (Auto) 2.5 10^3/uL (0.8-4.8) 03/06/25 21:54 [place] # (Auto) 0.8 10^3/uL (0.2-0.9) 03/06/25 21:54 Eos # (Auto) 0.1 10^3/uL (0.0-0.8) 03/06/25 21:54 Baso # (Auto) 0.1 10^3/uL (0.0-0.1) 03/06/25 21:54 Nucleated RBC % (auto) 0 % 03/06/25 21:54 Nucleated RBCs # 0.0 /100WBC 03/06/25 21:54 Sodium 137 mmol/L (136-145) 03/06/25 21:54 Potassium 3.8 mmol/L (3.5-5.1) 03/06/25 21:54 Chloride 102 mmol/L (98-107) 03/06/25 21:54 Carbon Dioxide 23 mmol/L (22-29) 03/06/25 21:54 Anion Gap 15.8 (5-19) 03/06/25 21:54 BUN 7 mg/dL (6-20) 03/06/25 21:54 Creatinine 0.8 mg/dL (0.7-1.2) 03/06/25 21:54 GFR Calculation 102.7 mL/min (90-130) 03/06/25 21:54 Glucose 110 mg/dL (65-115) 03/06/25 21:54 Calculated Osmolality 283 mOsm/kg (285-295) L 03/06/25 21:54 Calcium 9.3 mg/dL (8.5-10.5) 03/06/25 21:54 Total Bilirubin 0.4 mg/dL (0.15-1.2) 03/06/25 21:54 AST 21 U/L (0-40) 03/06/25 21:54 ALT 21 U/L (0-41) 03/06/25 21:54 Alkaline Phosphatase 47 U/L (40-130) 03/06/25 21:54 Total Protein 7.3 g/dL (6.6-8.7) 03/06/25 21:54 Albumin 4.4 g/dL (3.5-5.2) 03/06/25 21:54 Globulin 2.9 g/dL (1.3-4.6) 03/06/25 21:54 Lipase 197 U/L (13-60) H 03/06/25 21:54 Urine Color Yellow (Yellow) 03/06/25 21:51 Urine Appearance Clear (CLEAR) 03/06/25 21:51 Urine pH 8.0 (5-7) A 03/06/25 21:51 Ur Specific [place] 1.009 (1.005-1.030) 03/06/25 21:51 Urine Protein Negative (Negative) 03/06/25 21:51 Urine Glucose (UA) Negative (Normal) 03/06/25 21:51 Urine Ketones Negative (Negative) 03/06/25 21:51 Urine Blood Negative (Negative) 03/06/25 21:51 Urine Nitrate Negative (Negative) 03/06/25 21:51 Urine Bilirubin Negative (Negative) 03/06/25 21:51 Urine Urobilinogen 0.2 mg/dL (Negative) 03/06/25 21:51 Ur Leukocyte Esterase Negative (Negative) 03/06/25 21:51 Urine RBC 0-2 /hpf (0-2) 03/06/25 21:51 Urine WBC 0-5 /hpf (0-5) 03/06/25 21:51 Ur Squamous Epith Cells 0-5 /hpf (0-5) 03/06/25 21:51 Amorphous Sediment Not Reportable 03/06/25 21:51 Urine Bacteria None seen /hpf (NONE) 03/06/25 21:51 Hyaline Casts 0-4 /lpf H 03/06/25 21:51 Ethyl Alcohol < 10 mg/dL (0-10) 03/06/25 21:54 All radiology interpretation(s) finalized by discharge Discharge Plan Discharge Patient Disposition: Home Clinical Impression: Gastroenteritis Condition: Stable Prescriptions: New metoclopramide HCl [Reglan] 10 mg tablet 10 mg PO Q6H PRN (Reason: nausea and vomiting) Qty: 30 0RF No Action baclofen 10 mg tablet 10 mg PO TID Qty: 90 2RF nystatin 100,000 unit/gram cream 1 applic topical BID 14 Days Qty: 30 0RF celecoxib [Celebrex] 200 mg capsule 200 mg PO BID Qty: 120 1RF diclofenac sodium [Voltaren Arthritis Pain] 1 % gel 4 g topical QID Qty: 100 3RF Rx Instructions: apply to single knee, ankle, foot; for foot includes sole/toes/top of foot and elbow ondansetron 4 mg tablet,disintegrating 4 mg PO Q6H PRN (Reason: nausea and vomiting) Qty: 14 0RF Discharge Orders: Discharge ED (Routine); Ordered 03/07/25 Ordered By: Von Steele Referrals: Jamir Perdomo MD [Primary Care Provider, Family Practice] Discharge Diet: Advance as tolerated Patient Instructions: Gastroenteritis (ED) Activity Restrictions/Additional Instructions: The CT scan was concerning for gastroenteritis. A prescription of metoclopramide has been sent to your pharmacy for the nausea/vomiting. You may use this medication when you are Zofran is not sufficient Begin with clear liquids and slowly increase your oral intake as tolerated. Avoid spicy, acidic, and greasy foods as it will make the vomiting worse Follow-up with primary care, call in 1 to 2 days with an update of symptoms and to discuss a recheck Return to the emergency department if any rapid worsening symptoms and as needed Print Language: Bermudian Coding Level of Care Code ED Plastics Engineering Teacher for Gianni Nguyen
[2025-03-06] MEDS: sodium chloride 0.9% 1,000 ML 999 ML IV (22:44)
[2025-03-06] MEDS: metoclopramide 5 mg/mL SDV 2 mL 10 MG XX (22:47)
[2025-03-06] MEDS: diphenhydrAMINE 50 mg/mL SDV 1mL 25 MG IVP (22:48)
[2025-03-06 23:00] LABS: Basophils # 0.1 10^3/uL (0.0-0.1); Basophils % 0.8 %; Eosinophils # 0.1 10^3/uL (0.0-0.8); Eosinophils % 1.2 %; Lymphocytes # 2.5 10^3/uL (0.8-4.8); Lymphocytes % 21.8 %; Mean Corpuscular HGB Conc 33.4 g/dL (30-55); Mean Corpuscular Hemoglobin 30.4 pg (27-33); Mean Corpuscular Volume 91.1 fl (82-101); Mean Platelet Volume 10.6 fL (7.4-10.4); Monocytes # 0.8 10^3/uL (0.2-0.9); Neutrophils # 7.81 10^3/uL (1.8-7.7); Neutrophils % 68.8 %; Nucleated Red Blood Cells % 0 %; Platelet Count 418 10^3/cmm (157-399); Red Blood Count 4.83 10^6/uL (3.85-5.65); Red Cell Distribution Width 13.6 % (12.1-15.1); White Blood Count 11.36 10^3/uL (3.29-11.43)
[2025-03-06 23:13] LABS: Bilirubin Urine Negative (Negative); Blood Urine Negative (Negative); Glucose Urine UA Negative (Normal); Ketones Urine Negative (Negative); Leukocyte Esterase Urine Negative (Negative); Nitrate Urine Negative (Negative); Protein Urine Negative (Negative); Specific Gravity, Urine 1.009 (1.005-1.030); Urine Appearance Clear (CLEAR); Urine Color Yellow (Yellow); Urobilinogen Urine 0.2 mg/dL (Negative)
[2025-03-06 23:15] LABS: Add Urine Microscopic? YES; Bacteria Urine None Seen /hpf; Hyaline Casts Urine 0-4 /lpf; RBC Urine 0-2 /hpf (0-2); Squamous Epithelial Cell Urine 0-5 /hpf (0-5); WBC Urine 0-5 /hpf (0-5)
[2025-03-06 23:30] LABS: Add Urine Culture? No
[2025-03-06 23:40] LABS: Alanine Aminotransferase 21 U/L (0-41); Albumin Level 4.4 g/dL (3.5-5.2); Alkaline Phosphatase 47 U/L (40-130); Anion Gap 15.8 (5-19); Aspartate Amino Transferase 21 U/L (0-40); Blood Urea Nitrogen 7 mg/dL (6-20); Calcium 9.3 mg/dL (8.5-10.5); Carbon Dioxide 23 mmol/L (22-29); Chloride 102 mmol/L (98-107); Creatinine Clr Calc Pharmacy 130.7657; Globulin 2.9 g/dL (1.3-4.6); Glomerular Filtration Rate 102.7 mL/min (90-130); Glucose 110 mg/dL (65-115); Lipase 197 U/L (13-60); Osmolality Calculated 283 mOsm/kg (285-295); Potassium 3.8 mmol/L (3.5-5.1); Sodium 137 mmol/L (136-145); Total Bilirubin 0.4 mg/dL (0.15-1.2); Total Protein 7.3 g/dL (6.6-8.7)
[2025-03-06 23:45] VITALS: BP 123/68; PULSE 63; RESP 16; O2SAT 97
[2025-03-06 23:53] LABS: Alcohol Level < 10 mg/dL (0-10)
--- NOTE | 2025-03-06 23:58 | CTR_ITS ---
PROCEDURE INFORMATION: Exam: CT Abdomen And Pelvis With Contrast Exam date and time: 03/07/2025 12:19 AM Age: 49 years old Clinical indication: Vomiting; Prior surgery; Surgery date: 6+ months; Surgery type: Cholecystectomy; Additional info: Vomiting, lipase 197. Pancreatitis? TECHNIQUE: Imaging protocol: Computed tomography of the abdomen and pelvis with contrast. Radiation optimization: All CT scans at this facility use at least one of these dose optimization techniques: automated exposure control; mA and/or kV adjustment per patient size (includes targeted exams where dose is matched to clinical indication); or iterative reconstruction. Contrast material: OMNI 350; Contrast volume: 100 ml; Contrast route: INTRAVENOUS (IV); COMPARISON: CR XR lumbar spine 2-3V* [id number] 04/07/2024 10:26 PM RADIATION DOSE METRICS: Total DLP (mGy-cm): 1002.8 FINDINGS: Lungs: Emphysematous changes. Liver: Hepatic steatosis. Gallbladder and biliary ducts: Cholecystectomy. Pancreas: Normal. No ductal dilation. Spleen: Normal. No splenomegaly. Adrenal glands: Normal. No mass. Kidneys and ureters: Normal. No hydronephrosis. Stomach and bowel: Prominent fluid in the stomach and small bowel, please correlate for a gastroenteritis. Diverticulosis without diverticulitis. Appendix: No evidence of appendicitis. Intraperitoneal space: Unremarkable. No free air. No significant fluid collection. Vasculature: Unremarkable. No abdominal aortic aneurysm. Lymph nodes: Unremarkable. No enlarged lymph nodes. Urinary bladder: Unremarkable as visualized. Reproductive: Unremarkable as visualized. Bones/joints: Unremarkable. No acute fracture. Soft tissues: Unremarkable. CT/CT abdomen pelvis w con* [id number] IMPRESSION: 1. Prominent fluid in the stomach and small bowel, please correlate for a gastroenteritis. 2. Diverticulosis without diverticulitis. 3. Emphysematous changes. 4. Hepatic steatosis. 5. Cholecystectomy.
[2025-03-07] MEDS: iohexol 350 mg/mL 500 mL Btl (per mL) IV (00:22)
[2025-03-07 00:30] VITALS: BP 128/65; PULSE 66; RESP 16; O2SAT 97
[2025-03-07 01:54] VITALS: BP 125/57; PULSE 67; RESP 16; O2SAT 95
[2025-03-08 05:20] LABS: Amylase 82 U/L (21-101)
== END 2025-03-07 01:56 | disposition home or self-care (01) ==
PROVIDERS: Emergency Provider Nurse Practitioner; PCP Family Medicine
DX: K52.9 Noninfective gastroenteritis and colitis, unspecified (principal); F17.210 Nicotine dependence, cigarettes, uncomplicated
CPT/HCPCS: 74177; 80053; 80307; 81001; 82150; 83690; 85025; 96374; 96375; 99285; J1200; J2765; J7030

== ENCOUNTER 2025-03-13 17:15 | Emergency (ER) | payer OTHER, SELFPAY ==
--- OUTSIDE RECORDS SUMMARY | 2016-12-23 07:20 | XMS_ITS | Continuity of Care Document ---
Author Organization [facility] enter Address [address] [place] [address] Phone Care Team Providers Care Purification Operator Helper Name Role Phone Unavailable Unavailable Unavailable Allergies, [...] Copied on Encounter Level IV, Est. Patient [facility], [address] [place], [place], [id number] , tel:[phone] [facility] 1 Diarrhea (chief complaint) RUQ abdominal painDiarrhea in adult patientHx of cholecystectomyBod y mass index (BMI) 32.0-32.9, adult Dec- 7 No Information [facility], [address] [place], [place], [id number] , [place] tel:[phone] Dental [facility] 1 Encounter for dental exam and cleaning w/o abnormal findings 6 No Information Level III, Est. Patient [facility], [address] [place], [place], [id number] , [place] tel:[phone] [facility] Dental Clearance (chief complaint) General medical examChronic bilateral low back pain without sciaticaBody mass index (BMI) 30.0-30.9, adult Dec- 6 No Information [facility], [address] [place], [place], [id number] , [place] tel:[phone] Dental [facility] 1 Encounter for dental examination and cleaning without abnormal findings 6 No Information [facility], [address] [place], [place], [id number] , [place] tel:[phone] Dental [facility] 1 Encounter for dental exam and cleaning w/o abnormal findings Dec- 6 No Information Level III, Est. Patient [facility], [address] [place], [place], [id number] , [place] tel:[phone] [facility] cough (chief complaint) BMI 33.0-33.9,ADULTAcu te bronchitisTobacco dependence 5 No Information Level II, New Patient [facility], [address] [place], [place], [id number] , [place] tel:[phone] [facility] STI (chief complaint) DYSURIASCREEN FOR VENERAL DIS 2 No Information Family History Family Member Type Diagnosis Age At Onset Son Problem (finding) Alive and well Payers Payer name Insurance type Covered democrat ID Authoriza tion(s) No Information Social History [...] Education Cholecystectomy: What t o Expect at [facility] completed Patient Education Learning About Dental C are completed Patient Education Learning About Dental C are completed Patient Education Learning About Dental C are completed Future Order: Lab Order CBC with Auto Diff ([id number]), Sent on: Sent Future Order: Lab Order CMP(COMP METABOLIC PANEL W/GFR) ([id number]), Sent on: Sent History Of Present Illness Encounter Date Complaint History Of Prese nt Illness Diarrhea (comments) states recen t fever and body aches. states he has a complicated GI hx and recurrent upper RQ pain every once in a while. denies recent hospitalization or abx. family members with diarrhea as wellPt requested to do his labs at [place]. [facility] Diarrhea Onset: 2 days ag o. The [...] potatoes lately to help. [facility] is PCP. Dental Clearance The symptoms be vic 1 [...] Status Date Functional Assessmen t Pain Score 05/30 Pain Score 7 Pain Score / Instructions Date Instruction Additional Infor antonio I [...] let me know. You can also call 7-005-YJFB-NOW and they can provide you with resources [...] antibiotics as prescribed. Related to Acute bronchitis Dietary management e ducation, guidance, and counseling Related to BMI 33.0 to 33.9 Prescribed activity/exercise edu cation Related to BMI 33.0 to 33.9 Assessments Type Assessment Date assessment RUQ abdominal pain assessment Diarrhea in adult patient assessment Hx of cholecystectomy 7 Mental Status Date Cognitive Assessment Orientation - [place] ed to time, place, person, situation. Patient Care Teams Name Effective Dates (start - stop) Status Members No Information
--- NOTE | 2025-03-13 17:19 | ECG_ITS ---
[facility] Test Date: 2025-03-13 Pat Name: Mickey Mckeon Department: Room: Gender: Male Sql Report Developer: : 1975 Requested By: Tarsha Chow Order Number: [id number] Ramirez MD: Samuel Hernandez M.D. Measurements Intervals [place] Rate: 65 P: 59 [place]: 182 QRS: -15 QRSD: 101 T: 35 QT: 418 QTc: 436 Interpretive Statements SINUS RHYTHM No previous ECG available for comparison Electronically Signed On 03-13-2025 17:28:02 CDT by Samuel Hernandez M.D. [id number]
[2025-03-13 17:20] VITALS: BP 140/88; RESP 16; TEMP 36.7; O2SAT 92; BMI 35.7
[2025-03-13] MEDS: ondansetron 2 mg/ML SDV 2 mL 4 MG IVP (17:20)
--- NOTE | 2025-03-13 17:20 | W.ED.GENADLT ---
HPI - General Adult General: Chief complaint: General Medical Stated complaint: Heat Time Seen by Provider: 03/13/25 17:15 Source: patient Mode of arrival: ambulatory Limitations: no limitations History of Present Illness: 49-year-old male states he fell like he got overheated at work states it has been hot in the kitchen he went outside and felt like he was going to pass out and got lightheaded he states he feels improved now that he is out of the heat. He denies any chest pain denies any vomiting. Associated symptoms: Deny chest pain, dyspnea, headache(s), nausea, rash or vomiting Related Data Previous Rx's ?Medication ?Instructions ?Recorded celecoxib 200 mg capsule (Celebrex) 200 mg PO BID #120 caps 10/19/24 baclofen 10 mg tablet 10 mg PO TID #90 tabs 11/30/24 nystatin 100,000 unit/gram topical 1 applic topical BID 14 days #30 11/30/24 cream grams diclofenac sodium 1 % topical gel 4 g topical QID #100 grams 12/06/24 (Voltaren Arthritis Pain) ondansetron 4 mg disintegrating 4 mg PO Q6H PRN nausea and 03/05/25 tablet vomiting #14 tabs metoclopramide HCl 10 mg tablet 10 mg PO Q6H PRN nausea and 03/07/25 (Reglan) vomiting #30 tabs Allergies Allergy/AdvReac Type Severity Reaction Status Date / Time citric acid Allergy ALGY-Bliste Verified 03/06/25 22:13 r tomato Allergy ALGY-Anaphy Verified 03/06/25 22:13 laxis Review of Systems Const: Denies: fever(s), chills, body aches or change in appetite Eyes: Denies: blurry vision ENMT: Denies: throat pain or dental pain Card: Reports: pre-syncope; Denies: chest pain Resp: Denies: dyspnea GI: Denies: abdominal pain, nausea, vomiting or diarrhea Musc: Denies: neck pain or back pain Skin/Breast: Denies: rash Neuro: Denies: headache(s) PFSH ED PFSH: Medical History Moderate tobacco use disorder Degenerative disk disease Xerosis of skin Social anxiety disorder Adult BMI 35.0-35.9 kg/sq m Surgical History History of cholecystectomy Family History Grandfather Cancer Heart disease Grandmother Heart disease Mother Breast cancer Lung cancer Heart disease Father Alzheimer's dementia Hypertension Social History Smoking and tobacco/nicotine status: current every day tobacco/nicotine user cigarettes [ Other cigarette details: 1PPD, 15PY] Alcohol intake: never Substance/Drug Use: current Substance/Drug use frequency: daily Physical Exam Const: COMMON NORMALS: no acute distress, patient oriented x3 and healthy appearing HENMT: COMMON NORMALS: normocephalic and atraumatic HEAD & SCALP: normocephalic and atraumatic Neck/C-Spine: COMMON NORMALS: full ROM and supple Chest: COMMONS NORMALS: normal inspection of the chest Resp: COMMON NORMALS: normal respiratory effort, No retractions, No use of accessory muscles and clear to auscultation bilaterally AUSCULTATION: clear to auscultation bilaterally Cardio: COMMON NORMALS: regular rate, regular rhythm and No murmurs present (Cardio) RATE: regular rate RHYTHM: regular rhythm GI: COMMON NORMALS: Normal to inspection, nondistended, normoactive bowel sounds present, Soft to palpation, non-tender and no masses PALPATION: Yes Soft to palpation Extremity: COMMON NORMALS: normal to inspection and full ROM Neuro: COMMON NORMALS: patient oriented x3, moves all extremities and no focal motor deficits Psych: COMMON NORMALS: mental status grossly normal, Normal thought process present and cooperative THOUGHT PROCESS: Normal thought process present Skin: COMMON NORMALS: no rashes or lesions noted and no wounds GENERAL SKIN EXAM: no rashes or lesions noted Course Vital Signs: Vital signs: Vital Signs Temperature 98.0 F 03/13/25 17:20 Pulse Rate 71 03/13/25 17:28 Respiratory Rate 16 03/13/25 17:20 Blood Pressure 164/99 03/13/25 17:28 Pulse Oximetry 91 03/13/25 17:28 Oxygen Delivery Me thod Room Air 03/13/25 17:28 [facility] - General Adult Medical Decision Making Patient presents here with heat exposure he has been well-appearing here vitals are normal blood work is normal he stable for discharge follow-up with PCP return if worsening. Medical Records I reviewed the patient's medical records. Lab Data I reviewed the patient's lab results. 03/13/25 17:15 03/13/25 17:15 Laboratory Results WBC 10.49 10^3/uL (3.29-11.43) 03/13/25 17:15 RBC 5.14 10^6/uL (3.85-5.65) 03/13/25 17:15 Hgb 15.30 g/dL (11.27-16.99) 03/13/25 17:15 Hct 45.9 % (37-53) 03/13/25 17:15 MCV 89.3 fl (82-101) 03/13/25 17:15 MCH 29.8 pg (27-33) 03/13/25 17:15 MCHC 33.3 g/dL (30-55) 03/13/25 17:15 RDW 13.6 % (12.1-15.1) 03/13/25 17:15 Plt Count 353 10^3/cmm (157-399) 03/13/25 17:15 MPV 10.9 fL (7.4-10.4) H 03/13/25 17:15 Neut % (Auto) 57.4 % 03/13/25 17:15 Lymph % (Auto) 28.7 % 03/13/25 17:15 Republic % (Auto) 8.9 % 03/13/25 17:15 Eos % (Auto) 3.6 % 03/13/25 17:15 Baso % (Auto) 1.1 % 03/13/25 17:15 Neut # (Auto) 6.02 10^3/uL (1.8-7.7) 03/13/25 17:15 Lymph # (Auto) 3.0 10^3/uL (0.8-4.8) 03/13/25 17:15 Republic # (Auto) 0.9 10^3/uL (0.2-0.9) 03/13/25 17:15 Eos # (Auto) 0.4 10^3/uL (0.0-0.8) 03/13/25 17:15 Baso # (Auto) 0.1 10^3/uL (0.0-0.1) 03/13/25 17:15 Nucleated RBC % (auto) 0 % 03/13/25 17:15 Nucleated RBCs # 0.0 /100WBC 03/13/25 17:15 Sodium 137 mmol/L (136-145) 03/13/25 17:15 Potassium 4.3 mmol/L (3.5-5.1) 03/13/25 17:15 Chloride 101 mmol/L (98-107) 03/13/25 17:15 Carbon Dioxide 22 mmol/L (22-29) 03/13/25 17:15 Anion Gap 18.3 (5-19) 03/13/25 17:15 BUN 13 mg/dL (6-20) 03/13/25 17:15 Creatinine 0.9 mg/dL (0.7-1.2) 03/13/25 17:15 GFR Calculation 89.7 mL/min (90-130) L 03/13/25 17:15 Glucose 79 mg/dL (65-115) 03/13/25 17:15 Calculated Osmolality 283 mOsm/kg (285-295) L 03/13/25 17:15 Calcium 9.5 mg/dL (8.5-10.5) 03/13/25 17:15 Total Bilirubin 0.6 mg/dL (0.15-1.2) 03/13/25 17:15 AST 27 U/L (0-40) 03/13/25 17:15 ALT 22 U/L (0-41) 03/13/25 17:15 Alkaline Phosphatase 54 U/L (40-130) 03/13/25 17:15 Total Protein 7.7 g/dL (6.6-8.7) 03/13/25 17:15 Albumin 4.6 g/dL (3.5-5.2) 03/13/25 17:15 Globulin 3.1 g/dL (1.3-4.6) 03/13/25 17:15 No radiology studies performed this visit EKG Data EKG 1: I personally reviewed and interpreted this EKG as follows: EKG interpretation date: 03/13/25 EKG interpretation time: 17:25 Interpretation: nsr hr [address] elevation qrs 101 qtc 430 Discharge Plan Discharge Patient Disposition: Home Clinical Impression: Heat exposure Condition: Stable Prescriptions: No Action baclofen 10 mg tablet 10 mg PO TID Qty: 90 2RF nystatin 100,000 unit/gram cream 1 applic topical BID 14 Days Qty: 30 0RF celecoxib [Celebrex] 200 mg capsule 200 mg PO BID Qty: 120 1RF diclofenac sodium [Voltaren Arthritis Pain] 1 % gel 4 g topical QID Qty: 100 3RF Rx Instructions: apply to single knee, ankle, foot; for foot includes sole/toes/top of foot and elbow ondansetron 4 mg tablet,disintegrating 4 mg PO Q6H PRN (Reason: nausea and vomiting) Qty: 14 0RF metoclopramide HCl [Reglan] 10 mg tablet 10 mg PO Q6H PRN (Reason: nausea and vomiting) Qty: 30 0RF Discharge Orders: Discharge ED (Routine); Ordered 03/13/25 Ordered By: Tarsha Chow Referrals: Jamir Perdomo MD [Primary Care Provider, Family Practice] - 4-7 days Discharge Diet: Advance as tolerated Discharge Activity: Resume usual activity Patient Instructions: Heat Exhaustion (ED) Print Language: Greek Coding Level of Care Code ED [facility] for [facility]ni Nguyen
[2025-03-13 17:28] VITALS: BP 164/99; PULSE 71; O2SAT 91
--- NOTE | 2025-03-13 17:31 | PC.NURSE ---
per Dr. Chow, hold off on the NS bolus and let the EMS bag of fluids infuse.
[2025-03-13 17:37] LABS: Basophils # 0.1 10^3/uL (0.0-0.1); Basophils % 1.1 %; Eosinophils # 0.4 10^3/uL (0.0-0.8); Eosinophils % 3.6 %; Hematocrit 45.9 % (37-53); Lymphocytes % 28.7 %; Mean Corpuscular HGB Conc 33.3 g/dL (30-55); Mean Corpuscular Hemoglobin 29.8 pg (27-33); Mean Corpuscular Volume 89.3 fl (82-101); Mean Platelet Volume 10.9 fL (7.4-10.4); Monocytes # 0.9 10^3/uL (0.2-0.9); Monocytes % 8.9 %; Neutrophils # 6.02 10^3/uL (1.8-7.7); Neutrophils % 57.4 %; Nucleated Red Blood Cells % 0 %; Platelet Count 353 10^3/cmm (157-399); Red Blood Count 5.14 10^6/uL (3.85-5.65); Red Cell Distribution Width 13.6 % (12.1-15.1); White Blood Count 10.49 10^3/uL (3.29-11.43)
[2025-03-13 17:53] LABS: Alanine Aminotransferase 22 U/L (0-41); Albumin Level 4.6 g/dL (3.5-5.2); Alkaline Phosphatase 54 U/L (40-130); Blood Urea Nitrogen 13 mg/dL (6-20); Calcium 9.5 mg/dL (8.5-10.5); Carbon Dioxide 22 mmol/L (22-29); Chloride 101 mmol/L (98-107); Creatinine Clr Calc Pharmacy 117.5102; Globulin 3.1 g/dL (1.3-4.6); Glomerular Filtration Rate 89.7 mL/min (90-130); Glucose 79 mg/dL (65-115); Osmolality Calculated 283 mOsm/kg (285-295); Sodium 137 mmol/L (136-145); Total Bilirubin 0.6 mg/dL (0.15-1.2); Total Protein 7.7 g/dL (6.6-8.7)
[2025-03-13 17:56] LABS: Anion Gap 18.3 (5-19); Aspartate Amino Transferase 27 U/L (0-40); Potassium 4.3 mmol/L (3.5-5.1)
[2025-03-13 18:15] VITALS: BP 174/83; PULSE 62; RESP 16; O2SAT 91
== END 2025-03-13 18:15 | disposition home or self-care (01) ==
PROVIDERS: Emergency Provider Emergency Medicine; PCP Family Medicine
DX: T67.8XXA Other effects of heat and light, initial encounter (principal); X30.XXXA Exposure to excessive natural heat, initial encounter; F17.210 Nicotine dependence, cigarettes, uncomplicated; R42 Dizziness and giddiness
CPT/HCPCS: 80053; 85025; 93005; 96374; 99284; J2405

== ENCOUNTER 2025-08-05 05:31 | Emergency (ER) | payer BC, MEDICAID, SELFPAY ==
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
[2025-08-05 05:35] VITALS: BP 153/98; PULSE 66; RESP 18; TEMP 36.6; O2SAT 93; BMI 35.2
--- NOTE | 2025-08-05 05:37 | XRR_ITS ---
PROCEDURE INFORMATION: Exam: XR Chest Exam date and time: 08/05/2025 5:37 AM Age: 50 years old Clinical indication: Radiating; Prior surgery; Surgery date: 6+ months; Surgery type: Gb; C/O chest and upper back pain TECHNIQUE: Imaging protocol: Radiologic exam of the chest. Views: 1 view. COMPARISON: CT abdomen pelvis w con* [id number] 03/07/2025 12:19 AM FINDINGS: Lungs: There are some linear opacities in the left mid lung which likely represent atelectasis and/or fibrotic stranding. No consolidation. Pleural spaces: Unremarkable. No pleural effusion. No pneumothorax. Heart/Mediastinum: Unremarkable. No cardiomegaly. Bones/joints: Unremarkable. XR/XR chest 1V portable [id number] IMPRESSION: Linear opacities in the left mid lung likely represent evidence of atelectasis and/or fibrotic stranding. The lungs are otherwise clear.
--- NOTE | 2025-08-05 05:41 | ECG_ITS ---
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 Measurements Intervals [place] Rate: 60 P: 49 SD: 186 QRS: -30 QRSD: 99 T: 24 QT: 410 QTc: 411 Interpretive Statements SINUS RHYTHM WITH MARKED SINUS ARRHYTHMIA Compared to ECG 03/13/2025 17:25:33 No significant changes Electronically Signed On 08-05-2025 15:08:28 DISTRICT REPRESENTATIVE by Ronald Buck M.D. [id number]
--- NOTE | 2025-08-05 05:52 | W.ED.BACK ---
HPI - Back Pain/Injury General: Chief Complaint: Back Pain/Injury Stated Complaint: Back pain cant breath deep or move right arm Time Seen by Provider: 08/05/25 05:35 Source: patient Mode of arrival: ambulatory Limitations: no limitations History of Present Illness: 50-year-old male states he is up and moving on Wednesday and strained a muscle in his right upper back. States he been having increasing pain and muscle spasms since then. States its much worse when he tries to move his arm states had some dyspnea due to the tightness in the area as well. 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 Related Data Previous Rx's ?Medication ?Instructions ?Recorded diclofenac sodium 1 % topical gel 4 g topical QID #100 grams 12/06/24 (Voltaren Arthritis Pain) ondansetron 4 mg disintegrating 4 mg PO Q6H PRN nausea and 03/05/25 tablet vomiting #14 tabs metoclopramide HCl 10 mg tablet 10 mg PO Q6H PRN nausea and 03/07/25 (Reglan) vomiting #30 tabs cetirizine 10 mg tablet (Zyrtec) 10 mg PO DAILY #30 tabs 07/16/25 tizanidine 4 mg tablet 4 mg PO BID PRN muscle spasticity 07/30/25 #60 tabs benzonatate 200 mg capsule 200 mg PO BID PRN cough #14 caps 07/31/25 hydrocodone 5 mg-acetaminophen 325 1 tab PO Q6H PRN pain #14 tabs 08/05/25 mg tablet methocarbamol 750 mg tablet 750 mg PO Q6H PRN spasms #20 tabs 08/05/25 naproxen 500 mg tablet (Naprosyn) 500 mg PO BID PRN pain #20 tabs 08/05/25 Allergies Allergy/AdvReac Type Severity Reaction Status Date / Time citric acid Allergy ALGY-Bliste Verified 07/31/25 08:52 r tomato Allergy ALGY-Anaphy Verified 07/31/25 08:52 laxis Review of Systems Musc: Reports: back pain PFS ED PFSH: Medical History Moderate tobacco use disorder Degenerative disk disease Xerosis of skin Social anxiety disorder Adult BMI 35.0-35.9 kg/sq m Surgical History History of cholecystectomy Family History Grandfather Cancer Heart disease Grandmother Heart disease Mother Breast cancer Lung cancer Heart disease Father Alzheimer's dementia Hypertension Social History Smoking and tobacco/nicotine status: current every day tobacco/nicotine user cigarettes [ Other cigarette details: 1PPD, 15PY] Alcohol intake: never Substance/Drug Use: current Substance/Drug use frequency: daily Physical Exam Const: COMMON NORMALS: no acute distress, patient oriented x3 and healthy appearing HENMT: COMMON NORMALS: normocephalic and atraumatic HEAD & SCALP: normocephalic and atraumatic Eye: COMMON NORMALS: conjunctivae normal CONJUNCTIVA: Yes conjunctivae normal Neck/C-Spine: COMMON NORMALS: full ROM and supple Chest: COMMONS NORMALS: normal inspection of the chest and normal palpation of entire chest wall Resp: COMMON NORMALS: normal respiratory effort, No retractions, No use of accessory muscles and clear to auscultation bilaterally AUSCULTATION: clear to auscultation bilaterally Cardio: COMMON NORMALS: regular rate, regular rhythm and No murmurs present (Cardio) RATE: regular rate RHYTHM: regular rhythm Back/Pelvis: OTHER: Tenderness over the right rhomboid distal pulse sensation intact in his right arm Extremity: COMMON NORMALS: normal to inspection and full ROM Neuro: COMMON NORMALS: patient oriented x3, moves all extremities and no focal motor deficits Psych: COMMON NORMALS: mental status grossly normal, Normal thought process present and cooperative THOUGHT PROCESS: Normal thought process present Skin: COMMON NORMALS: no rashes or lesions noted and no wounds GENERAL SKIN EXAM: no rashes or lesions noted Course Vital Signs: Vital signs: Vital Signs Temperature 97.8 F 08/05/25 05:35 Pulse Rate 66 08/05/25 05:35 Respiratory Rate 18 08/05/25 05:56 Blood Pressure 153/98 08/05/25 05:35 Pulse Oximetry 94 08/05/25 05:56 MDM - Back Pain/Injury Medical Decision Making Patient presents here with back pain likely muscular in nature. He is tender over his rhomboid muscle with some muscle spasms. This chest x-ray showed no acute abnormality was interpreted by me. EKG shows normal sinus rhythm heart rate [address] elevation QRS 99 QTc 411. Chest pain is atypical in nature no signs of ACS his pain is radiating from his back from his muscle spasms did give him morphine Valium here will write him Robaxin along with Naprosyn and [place] for home he is follow-up with PCP and return if worsening All radiology interpretation(s) finalized by discharge ED provider radiology interpretation(s): cxr no acute abnormality EKG Data EKG 1: I personally reviewed and interpreted this EKG as follows: EKG interpretation date: 08/05/25 EKG interpretation time: 05:41 Interpretation: nsr hr [address] elevation qrs 99 qtc 411 Discharge Plan Discharge Patient Disposition: Home Clinical Impression: Thoracic back pain Condition: Stable Prescriptions: New hydrocodone-acetaminophen 5-325 mg tablet 1 tab PO Q6H PRN (Reason: pain) Qty: 14 0RF methocarbamol 750 mg tablet 750 mg PO Q6H PRN (Reason: spasms) Qty: 20 0RF naproxen [Naprosyn] 500 mg tablet 500 mg PO BID PRN (Reason: pain) Qty: 20 0RF No Action cetirizine [Zyrtec] 10 mg tablet 10 mg PO DAILY Qty: 30 0RF diclofenac sodium [Voltaren Arthritis Pain] 1 % gel 4 g topical QID Qty: 100 3RF Rx Instructions: apply to single knee, ankle, foot; for foot includes sole/toes/top of foot and elbow benzonatate 200 mg capsule 200 mg PO BID PRN (Reason: cough) Qty: 14 0RF tizanidine 4 mg tablet 4 mg PO BID PRN (Reason: muscle spasticity) Qty: 60 0RF ondansetron 4 mg tablet,disintegrating 4 mg PO Q6H PRN (Reason: nausea and vomiting) Qty: 14 0RF metoclopramide HCl [Reglan] 10 mg tablet 10 mg PO Q6H PRN (Reason: nausea and vomiting) Qty: 30 0RF Discharge Orders: Discharge ED (Routine); Ordered 08/05/25 Ordered By: Tarsha Chow Referrals: Jamir Perdomo MD [Primary Care Provider, Family Practice] - 4-7 days Discharge Diet: Advance as tolerated Discharge Activity: Resume usual activity Patient Instructions: Opioid Safety, Back Pain (ED) Print Language: Serbian Coding Level of Care Code 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
[2025-08-05 05:56] VITALS: RESP 18; O2SAT 94
[2025-08-05] MEDS: morphine 4 mg/mL SDV 1 mL IVP (05:56)
== END 2025-08-05 06:43 | disposition home or self-care (01) ==
PROVIDERS: Emergency Provider Emergency Medicine; PCP Family Medicine
DX: M54.6 Pain in thoracic spine (principal); F17.210 Nicotine dependence, cigarettes, uncomplicated
CPT/HCPCS: 71045; 93005; 96374; 99284; J2270; J9999

== ENCOUNTER → 2025-08-21 08:35 | Outpatient (BNVA) | payer BC, MEDICAID, SELFPAY | PROVIDERS: PCP Family Medicine; Visit Provider Student in an Organized Health Care Education/Training Program | DX: M77.8 Other enthesopathies, not elsewhere classified (principal); R20.0 Anesthesia of skin; R20.2 Paresthesia of skin; M77.12 Lateral epicondylitis, left elbow | CPT/HCPCS: 73080 ==